=== PATIENT | female | born 1930 | race Caucasian/White ===

== ENCOUNTER 2018-03-14 18:04 | Inpatient (IN) | payer MEDICARE, MEDICAID ==
--- NOTE | 2018-03-14 18:29 | ED Physician Chart ---
ED Chief Complaint/HPI - Patient Information Date Seen:: 03/14/18 Time Seen:: 18:15 Chief Complaint:: Agitation History of Present Illness:: onset x 3 days of agitation and aggressive behavior; no report of trauma, SIs, H /As, ALOC, S/T, neck pain, C/P, SOB, Abd. Pain, A/N/V/D/C, fever, chills, or urinary s/s Allergies:: Allergies Allergy/AdvReac Type Severity Reaction Status Date / Time celecoxib [From Celebrex] Allergy Verified 03/14/18 18:15 levetiracetam [From Keppra] Allergy Verified 03/14/18 18:28 Vitals:: Vital Signs - 8 hr 03/14/18 18:15 Temp 98.1 F HR 73 RR 16 BP 145/70 O2 Sat % 95 Historian:: Patient, EMS Review:: Nurse's Note Reviewed, Old Chart Reviewed, EMS run form Reviewed ED Review of Systems - Review of Systems General/Constitutional: No fever, No chills, No weight loss, No weakness, No diaphoresis, No edema, No loss of appetite Skin: No skin lesions, No rash, No bruising Head: No headache, No light-headedness Eyes: No loss of vision, No pain, No diplopia ENT: No earache, No nasal drainage, No sore throat, No tinnitus Neck: No neck pain, No swelling, No thyromegaly, No stiffness, No mass noted Cardio Vascular: No chest pain, No palpitations, No PND, No orthopnea, No edema Pulmonary: No SOB, No cough, No sputum, No wheezing GI: No nausea, No vomiting, No diarrhea, No pain, No melena, No hematochezia, No constipation, No hematemesis G/U: No dysuria, No frequency, No hematuria, No nacturia Chain Offbearer: No vaginal discharge, No abnormal vaginal bleed, No contraction Musculoskeletal: No bone or joint pain, No back pain, No muscle pain Endocrine: No polyuria, No polydipsia Psychiatric: Prior psych history, Depression, Anxiety, No suicidal ideation, No homicidal ideation, No auditory hallucination, No visual hallucination Hematopoietic: No bruising, No lymphadenopathy Allergic/Immuno: No urticaria, No angioedema Neurological: No syncope, No focal symptoms, No weakness, No paresthesia, No headache, No seizure, No dizziness, Confusion, No vertigo ED Past Medical History - Past Medical History Obtainable: Yes Past Medical History: HTN, Dyslipidemia, Arthritis, Dementia Family History: HTN Social History: Non Smoker, No Alcohol, No Drug Use, , Care Facility Surgical History: None Psychiatricy History: Bipolar, Dementia Medication: Reviewed Family Medical History - Family Member Mother History Unknown: Yes ED Physical Exam - Physical Examination General/Constitutional: Awake, Well-developed, well-nourished, Alert, No distress, GCS 15, Non-toxic appearing, Ambulatory Head: Atraumatic Eyes: Lids, conjuctiva normal, PERRL, EOMI Skin: Nl inspection, No rash, No skin lesions, No ecchymosis, Well hydrated, No lymphadenopathy ENMT: External ears, nose nl, TM canals nl, Nasal exam nl, Lips, teeth, gums nl , Oropharynx nl, Tonsils nl Neck: Nontender, Full ROM w/o pain, No JVD, No nuchal rigidity, No bruit, No mass, No stridor Other Neck comments:: supple; no meningeal signs; no cervical tenderness Respiratory: Nl effort/Exclusion, Clear to Auscultation, No Wheeze/Rhonchi/Rales Cardio Vascular: RRR, No murmur, gallop, rubs, NL S1 S2, Carotid/Femoral/Distal pulses equal bilaterally GI: No tenderness/rebounding/guarding, No organomegaly, No hernia, Normal BS's, Nondistended, No mass/bruits, No McBurney tenderness Other GI comments:: no pulsatile masses : No CVA tenderness Extremities: No tenderness or effusion, Full ROM, normal strength in all extremities, No edema, Normal digits & nails Neuro/Psych: Alert/oriented, DTR's symmetric, Normal sensory exam, Normal motor strength, Judgement/insight normal, Mood normal, Normal gait, No focal deficits Other Neuro/Psych comments:: Disoriented and Confused; + Psychomotor Agitation; no SIs; Mood/Affect: Labile Misc: Normal back, No paraspinal tenderness ED Labs/Radiology/EKG Results - Lab Results Comments:: reviewed - EKG Interpretations EKG Time:: 18:53 Rate & Rhythm: 87; NSR Comments:: T-Wave Inversions; non-specific st-t changes ED Septic Shock - . Is Septic Shock (SBP<90, OR Lactate>4 mmol\L) present?: No - <6hrs of presentation: Vital Signs: Vital Signs - 8 hr 03/14/18 18:15 Temp 98.1 F HR 73 RR 16 BP 145/70 O2 Sat % 95 ED Reassessment (Disposition) - Reassessment Reassessment Condition:: Improved - Diagnosis Diagnosis:: Agitation; Psychosis; Dementia; Medical Clearance; Bipolar Disorder - Aftercare/Follow up Instructions Aftercare/Follow-Up Instructions:: Counseled pt regarding lab results/diagnosis & need follow up, Counseled pt & family regarding lab results/diagnosis & need follow up - Patient Disposition Discharge/Transfer:: Acute Care w/in this hosp Admitted to:: [facility] Condition at Disposition:: Stable, Improved
[2018-03-14 19:32] LABS: % BASOPHILS 0.8 % (0.0-2.0); % EOSINOPHILS 2.9 % (0.0-5.0); % LYMPHOCYTES 31.6 % (20.0-50.0); % MONOCYTES 11.4 % (2.0-10.0); % NEUTROPHILS 53.3 % (40.0-80.0); BASOPHILE ABSOLUTE 0.1 Th/cumm (0-0.2); EOSINOPHILE ABSOLUTE 0.2 Th/cmm (0.1-0.4); HEMATOCRIT 41.4 % (41.0-60); HEMOGLOBIN 14.2 gm/dL (12-16); LYMPHOCYTE ABSOLUTE 2.1 Th/cmm (1.5-3.0); MEAN CORPUSCULAR HEMOGLOBIN 34.3 pg (27.0-31.0); MEAN CORPUSCULAR HGB CONC 34.3 pg (28.0-36.0); MONOCYTE ABSOLUTE 0.8 Th/cmm (0.3-1.0); NEUTROPHILE ABSOLUTE 3.4 Th/cmm (1.8-8.0); PLATELET COUNT 239 Th/cmm (150-400); RED BLOOD COUNT 4.14 Mil/cmm (3.80-5.20); RED CELL DISTRIBUTION WIDTH 12.9 % (11.5-20.0); WHITE BLOOD COUNT 6.6 Th/cmm (4.8-10.8)
[2018-03-14 20:06] LABS: ALB/GLOB RATIO 1.5 (1.0-1.8); ALBUMIN 4.5 gm/dL (3.7-5.3); ALKALINE PHOSPHATASE 118 U/L (34-104); ANION GAP 11.3 (7.0-16.0); BILIRUBIN,TOTAL 0.4 mg/dL (0.3-1.0); BUN - UREA NITROGEN 15 mg/dL (7-25); CALCIUM SERUM 9.9 mg/dL (8.6-10.3); CHLORIDE 97 mEq/L (98-107); CHOLESTEROL 246 mg/dL (<200); CREATININE - SERUM 0.8 mg/dL (0.6-1.2); GLUCOSE 108 mg/dL (70-105); HDL -HIGH DENSITY LIPOPROTEIN 72 mg/dL (23-92); POTASSIUM SERUM 4.3 mEq/L (3.5-5.1); SGOT 28 U/L (13-39); SGPT/ALT 15 U/L (7-52); SODIUM SERUM 133 mEq/L (136-145); TOTAL PROTEIN,SERUM 7.5 gm/dL (6.0-8.3); TRIGLYCERIDES 99 mg/dL (<150)
[2018-03-14 20:15] LABS: ACETAMINOPHEN < 10.0 ug/mL (10.0-30.0); SALICYLATES (ASPIRIN) < 25.0 mg/L (30.0-100.0)
[2018-03-14 20:20] VITALS: BP 145/70
[2018-03-14 20:24] LABS: A1C % 5.5 % (4.0-6.0)
[2018-03-14] MEDS ORDERED: Magnesium Hydroxide (MOM) 30 mL UDC PO PRN (20:29)
[2018-03-14] MEDS ORDERED: Maalox 30 mL Cup PO PRN (20:29)
[2018-03-14] MEDS ORDERED: Hydrocodone/APAP 5mg/325mg Tab PO PRN (20:37)
[2018-03-14] MEDS: Multivitamin Tab PO SCH (22:30)
[2018-03-15] MEDS ORDERED: Guaifenesin DM 10 ML UDC PO PRN (00:29)
[2018-03-15] MEDS ORDERED: Haloperidol Lactate 5 mg/mL 1mL Vial IM STA (08:56)
[2018-03-15] MEDS ORDERED: Haloperidol Lactate 5 mg/mL 1mL Vial ONE (08:57)
[2018-03-15] MEDS ORDERED: CARIPRAZINE HCL PO SCH (09:00)
[2018-03-15] MEDS: Escitalopram Oxalate 5 mg Tab PO SCH (09:15)
[2018-03-15] MEDS: Multivitamin Tab PO SCH (09:15)
[2018-03-15] MEDS ORDERED: Haloperidol Lactate 5 mg/mL 1mL Vial IM ONE (11:00)
[2018-03-15 11:18] LABS: PHENYTOIN 3.8 ug/ml (10.0-20.0)
--- NOTE | 2018-03-15 13:16 | Psychiatric Evaluation ---
DATE OF SERVICE: 03/14/2018 IDENTIFYING DATA: The patient is an 87-year-old woman, resident of [facility] in [place]. JUSTIFICATION OF HOSPITALIZATION: The patient is admitted here on a 5150 as a danger to self and danger to others and being gravely disabled. CHIEF COMPLAINT: "Get out of here. I don't need to give any information." HISTORY OF PRESENT ILLNESS: This is the first psychiatric hospitalization to [facility] who has been referred over here from the [facility] in [place] for acute agitation. The patient presented to the Emergency Room where she was assessed by the staff members and was placed on 5150 for being a danger to self and danger to others and being gravely disabled. During the interview, the patient is reported to have been trying to get out of the bed and attempting to hit, whoever approaches her shouting "get out of here and swinging at the staff and trying to talk to her. The patient is noted to be very agitated and the patient is reported to have felt, however, and requested help. The patient has been having concerns for ongoing care. The patient has been tried to be evaluated this morning and the patient has been very agitated, screaming and yelling and the patient has to be given a dose of Haldol that helped the patient to calm down. The patient is not able to provide much information. The patient, however, is reported noted to be on a conservatorship and I tried to review the chart and psychiatric services. A psychiatric consultation that was done on 03/01/2018 and most of the information has to be obtained from that. The patient at the time of the hospitalization has been reported to having problem with the sleep, appetite are, however, is reported to be fair, but the patient has been getting easily agitated and is noted to be very aggressive. Review of the chart indicated that the patient has been making delusional statements. 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 The patient is reported to have been on Tegretol for mood stabilization and also was given the Haldol and the patient at the time of the evaluation has been on the Vraylar and Lexapro. PAST PSYCHIATRIC HISTORY: Details are not known. PSYCHIATRIC HISTORY: The patient was treated with the Seroquel 75 mg that caused her sedation. The patient was also on clonazepam 0.25 mg twice a day and the patient is reported to have been on 1.5 mg of the real patient MEDICAL HISTORY: Physical examination is requested and done by Dr. Lovett. The patient is reported to have been taking Tegretol for her seizure disorder. SUBSTANCE ABUSE HISTORY: No history of substance abuse. FAMILY HISTORY: The patient is a resident of the [facility] in [place] for the past 4 years. The patient is reported to have 2 sons and a daughter. One son is diseased and has been also diseased and is estranged and a daughter is reported to have been trying to reach her. The patient is on a conservatorship. MENTAL STATUS EXAMINATION: The patient is an 87-year-old woman looking her stated age, superficially cooperative. Eye contact is poor. Mood is noted to be irritable. Affect is constricted. The patient is reported to have been out of control and the patient has to be given a dose of Haldol that made her to be too sedated. The patient is reported to have been trying to take a swing at the staff yesterday in the Emergency Room and the patient could not be contained. 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 I am not able to do any of the cognitive testing at this time because the patient is too sedated. Review of the chart indicated that the patient has paranoid as well as grandiose delusions. Insight and judgment are very much impaired. Impulse control is noted to be poor. DIAGNOSTIC IMPRESSION: AXIS I: Psychotic disorder, not otherwise specified. B. Dementia and behavioral change, secondary . AXIS II: None. AXIS III: As per Dr. Lovett. IMMEDIATE TREATMENT PLAN: The patient is going to be continued on the Tegretol for her seizures and Lexapro is going to be discontinued and the patient is going to be given the low dose of the lorazepam for her anxiety and the patient is going to be continued on a low dose of an antipsychotic medication and the patient is going to be followed up. The patient is going to be started with the low dose of the Seroquel switch is a 25 mg twice a day and the patient is going to be encouraged to verbalize the concerns rather than to act out. ESTIMATED LENGTH OF STAY: 3-7 days. DISCHARGE CRITERIA: When she no longer a threat to self or others and be able to cope up with the stress. [facility]# [id number]
[2018-03-15] MEDS: Atorvastatin Calcium 10 MG TAB PO SCH (22:13)
--- NOTE | 2018-03-15 23:25 | Consultation ---
DATE OF CONSULTATION: INTERNAL MEDICINE CONSULTATION REFERRING MD: Dr. Paula. REASON FOR CONSULT: Medical management. HISTORY OF PRESENT ILLNESS: The patient is an 87-year-old lady, who was transferred from [facility] secondary to aggressive behavior and agitation for the last 3 days or so. She is currently sedated given aggressive behavior earlier this morning and I am not able to get any history from her, but per records, she has a history of dementia with behavioral disturbance, CAD of [place] coronary artery without any angina, paroxysmal AFib, convulsions, and acid reflux disease. She appears to be comfortable at this time. Per staff, she has not been complaining of any chest pain, shortness of breath or any other clinical symptoms. PAST MEDICAL HISTORY: As noted above. PAST SURGICAL HISTORY: None listed. FAMILY HISTORY: Per notes, hypertension. SOCIAL HISTORY: Nonsmoker. There is no alcohol history. She is a and lives at a care facility. ALLERGIES: ALLERGIC TO CELEBREX AND KEPPRA. OUTPATIENT MEDICATIONS: Tegretol 400mg b.i.d., docusate sodium 100 mg b.i.d., Haldol 1 mg IM q. 12 hours as needed for agitation, Tylenol 325 mg q. 6 p.r.n. for fever or pain, aspirin 325 mg daily, atorvastatin 40 mg daily, Vraylar 2 tabs daily of 1.5 mg, clonazepam 0.25 mg b.i.d., Robitussin p.r.n. for cough, [place] 5/325 mg q. 6 hours for severe pain, Dilantin 300mg at bedtime, Zantac 150 mg at bedtime. REVIEW OF SYSTEMS: Unable to be done given patient's current condition. PHYSICAL EXAMINATION: VITAL SIGNS: Temperature 98.5, pulse 73, respirations 20, BP 145/70, satting 95% on room air. GENERAL: Well-developed, well-nourished female, not in acute distress. She is sitting up in the Gisele chair, status post sedation. HEAD AND NECK: Normocephalic, atraumatic. Pupils were not checked at this time. NECK: There is no JVD or LAD. CARDIOVASCULAR: Regular rate and rhythm with distant sounds, but no audible murmurs or gallops. LUNGS: Clear to auscultation bilaterally. ABDOMEN: Soft, supple, nontender, nondistended, normoactive bowel sounds. EXTREMITIES: Lower extremities, there is no edema. NEUROLOGIC: Not done given the patient's condition. LABORATORY DATA: CBC was essentially within normal limits. Sodium 133. The rest of the chemistries were within normal limits. Glucose 108. A1c 5.5. AST 28, ALT 15, alkaline phosphatase 118. Troponin 0.12, cholesterol 246, LDL 138, HDL 72. TSH 3.31. Triglyceride level was 99. DIAGNOSTICS: EKG done on admission shows a sinus rhythm at a rate of 87. There are no ST elevations or depressions. ASSESSMENT: 1. Acute psych decompensation with aggressive behavior. 2. History of dementia with behavioral disorder. 3. History of coronary artery disease. 4. Slight elevation of troponin levels. 5. Paroxysmal atrial fibrillation-currently rate controlled. 6. Hyperlipidemia. 7. History of seizure disorder/convulsions. PLAN: The patient has been admitted to [facility] for further management of her psych decompensation. The patient will be kept on all her medications as schedule. I will lower the aspirin to 81 mg p.o. daily and add Plavix 75 mg daily. Given her elevated troponin levels, I will repeat a troponin in 8 hours and monitor. JOB# [id number] AURELIA
[2018-03-16] MEDS: Escitalopram Oxalate 5 mg Tab PO SCH (09:17)
[2018-03-16] MEDS: Multivitamin Tab PO SCH (09:19)
[2018-03-16] MEDS: Atorvastatin Calcium 10 MG TAB PO SCH (21:59)
--- NOTE | 2018-03-17 00:13 | Consultation ---
DATE OF CONSULTATION: 03/16/2018 REFERRING PHYSICIAN: Sandra Paula MD TYPE OF CONSULTATION: Psychology. HISTORY OF PRESENT ILLNESS: The patient is an 87-year-old female. The patient is a resident of [facility] in [place]. The following is by review of the medical record and by the patient's self-report. The patient is admitted on a 5150 as a danger to self and a danger to others and being gravely disabled. Upon interview, the patient is irritable and dismissive. The patient is declining to participate in the clinical interview. According to record review, the patient was referred from [facility] into the Emergency Room where she was assessed and placed on a 5150 for danger to self and to others. The patient was reported to have been trying to attempt to hit staff members and was extremely agitated and unable to be contained. The patient apparently was given a dose of Haldol to assist in deescalating the patient and to calm down. According to record, there was a psychiatric consultation done on 03/01/2018 and therefore, the information contained in that report is available. The patient seemed to believe that staff and others in her alf have been against her. The patient offered no other information. The patient declined to answer questions about suicidal ideation, plan or intention or homicidal ideation, plan or intention. SUBSTANCE ABUSE HISTORY: No record available. PAST MEDICAL HISTORY: Please see history and physical by Dr. Lovett. PAST PSYCHIATRIC HISTORY: The patient's records are available. Please see consultation. PSYCHOSOCIAL HISTORY: The patient is a resident of [facility] in [place] for the last 4 years. The patient has 2 sons and 1 daughter, one son is and the daughter is estranged. Apparently, the patient is on conservatorship. The patient answered no other questions about occupational or educational history or mandaeism affiliation. The patient did not answer questions about legal problems. She did not answer questions about history of physical or sexual abuse. The patient is demanding to be discharged. MENTAL STATUS EXAMINATION: The patient appears to be her stated age. The patient's attitude is guarded. Eye contact is poor. Speech is loud. Mood is irritable. Affect is constricted. The patient's behavior has been difficult to redirect. According to the staff, the patient has tried to swing or strike out at staff in the Emergency Room and could not be contained. Emergency Medicine was provided. The patient did not answer questions about auditory or visual hallucinations. She did not answer questions about suicidal ideation, plan or intention. There is possible paranoid ideation. This needs further evaluation. Impulse control is impaired. Concentration is poor. Sensorium is alert and oriented to self only. The patient did not participate in the memory assessment. The patient did not participate in the interpretation of proverbs. Insight is impaired. Judgment is impaired. DIAGNOSTIC IMPRESSION: AXIS I: 1. Psychotic disorder, not otherwise specified. 2. Dementia with behavioral disturbance. 3. Impulse control disorder, not otherwise specified. AXIS II: Deferred. AXIS III: Per Dr. Lovett. TREATMENT PLAN: The patient has been seen by Dr. Paula for psychiatric evaluation and for the management of the patient's psychotropic medications. The patient has been on Tegretol for seizures. The patient will be continued on that medication and Lexapro is going to be discontinued. The patient was given a low dose of lorazepam for anxiety as well as a low dose of an antipsychotic medication. The patient was given emergency medicine of [facility] to assist in deescalating her striking out at staff members and for her uncontainable behavior. We will provide limit setting and de-escalation. We will provide motivational enhancement for the patient to become compliant and stay compliant with all aspects of her care and treatment. We will provide reality orientation, differentiation and integration. We will provide coping strategies for phase of life issues. We will encourage the patient to be able to demonstrate emotional and self-regulation prior to her discharge. We will encourage the patient to verbalize her concerns versus acting out at staff and to follow through with direction. Thank you, Dr. Paula, for this consult and the opportunity to participate with you in this patient's care. JOB# [id number] AURELIA
--- NOTE | 2018-03-17 03:12 | Progress Notes ---
DATE: 03/16/2018 PSYCHIATRIC PROGRESS NOTE SUBJECTIVE: Staff was spoken to. The patient is interviewed. Mood is noted to be irritable. Affect is constricted. Coping skills at this time are noted to be poor. Insight and judgment are also noted to be impaired. The patient is confused and has been trying to get out of the bed and then wander off. ASSESSMENT: The patient is still psychotic, paranoid, and depressed. PLAN: To continue the patient with Seroquel and low dose of Lexapro and follow the patient up. JOB# [id number]
[2018-03-17] MEDS: Escitalopram Oxalate 5 mg Tab PO SCH (10:44)
[2018-03-17] MEDS: Multivitamin Tab PO SCH (10:44)
--- NOTE | 2018-03-17 18:22 | Progress Notes ---
DATE: 03/17/2018 SUBJECTIVE: Staff was spoken to. The patient is interviewed. Mood is noted to be dysphoric. The patient has short-term as well as long-term memory deficits. The patient is pacing. The patient needs to be closely monitored. The patient has been getting easily frustrated and needs to be redirected. The patient is screaming and yelling, have been closely monitored. The patient is currently on escitalopram 5 mg and Seroquel 12.5 mg twice a day and has been able to tolerate. No side effects to the medications are noted. ASSESSMENT: The patient is still impulsive. PLAN: To continue the patient with the current medications and followup. JOB# [id number]
[2018-03-17] MEDS: Atorvastatin Calcium 10 MG TAB PO SCH (20:46)
[2018-03-18] MEDS: Escitalopram Oxalate 5 mg Tab PO SCH (09:34)
[2018-03-18] MEDS: Multivitamin Tab PO SCH (09:35)
--- NOTE | 2018-03-18 21:16 | Progress Notes ---
DATE: 03/18/2018 PSYCHIATRIC PROGRESS NOTE Staff was spoken to. The patient is interviewed. Mood is noted to be irritable. Affect is constricted. The patient has been having difficult time today. The patient's coping skills are noted to be extremely poor. The patient is screaming and yelling. The patient has no insight into her illness. ASSESSMENT: The patient is still dysphoric. PLAN: To continue the patient with Seroquel and possibly discontinue the escitalopram. The patient is going to be encouraged to verbalize the concerns rather than to act out. JOB# [id number]
[2018-03-18] MEDS: Atorvastatin Calcium 10 MG TAB PO SCH (21:26)
[2018-03-19] MEDS: Multivitamin Tab PO SCH (09:06)
[2018-03-19] MEDS: Atorvastatin Calcium 10 MG TAB PO SCH (21:21)
--- NOTE | 2018-03-19 22:40 | Progress Notes ---
DATE: 03/19/2018 SUBJECTIVE: Staff was spoken to. The patient is interviewed. Mood is noted to be irritable. Affect is constricted. The patient is getting easily irritable. Coping skills at this time are noted to be very poor. Sleep and appetite also noted to be very poor. ASSESSMENT: The patient is still grossly psychotic and impulsive. PLAN: To continue the patient with the supportive therapy. We encouraged the patient to verbalize the concerns rather than to act out. [facility]# [id number]
[2018-03-20] MEDS: Multivitamin Tab PO SCH (09:15)
--- NOTE | 2018-03-20 17:32 | Progress Notes ---
DATE: 03/20/2018 SUBJECTIVE: Staff was spoken to. The patient is interviewed. Mood is noted to be irritable. Affect is constricted. The patient is getting easily frustrated. Insight and judgment at this time are noted to be still impaired. No side effects to the medications are noted. The patient has paranoid delusions, but denies any command hallucinations. The patient is currently on the Seroquel, which is being given at 12.5 mg twice a day and is going to be increased to 25 mg twice a day and followed up with the supportive therapy. JOB# [id number]
[2018-03-20] MEDS: Atorvastatin Calcium 10 MG TAB PO SCH (21:08)
[2018-03-21] MEDS: Multivitamin Tab PO SCH (08:40)
[2018-03-21] MEDS: Atorvastatin Calcium 10 MG TAB PO SCH (21:16)
--- NOTE | 2018-03-21 22:42 | Progress Notes ---
DATE: 03/21/2018 SUBJECTIVE: Staff was spoken to. The patient is interviewed. Mood is noted to be irritable. Affect is constricted. Coping skills at this time are noted to be still poor. The patient has been pacing on the unit. No side effect to the medications are noted. The patient has paranoia and has been getting easily upset today. The patient is currently on 25 mg twice a day of the Seroquel and has been able to tolerate the medication. ASSESSMENT: The patient is still impulsive and paranoid. PLAN: To continue the patient with the supportive therapy and encouraged the patient to verbalize the concerns rather than to act out. JOB# [id number]
[2018-03-22] MEDS: Multivitamin Tab PO SCH (08:20)
[2018-03-22] MEDS: Atorvastatin Calcium 10 MG TAB PO SCH (20:58)
--- NOTE | 2018-03-22 21:20 | Progress Notes ---
DATE: 03/22/2018 SUBJECTIVE: Staff was spoken to. The patient is interviewed. Mood is noted to be irritable. Affect is constricted. The patient is screaming and yelling and has been cursing the staff out. The patient has no insight into her illness. Coping skills are noted to be very poor. The patient is not able to contract for safety. It is becoming a major behavioral problem, continues to be very paranoid for no reason. She has been screaming. ASSESSMENT: The patient is still impulsive. PLAN: To discontinue the Klonopin because the patient is already on lorazepam and the patient is going to be placed on the Seroquel, which is going to be given 50 mg twice a day and the patient is going to be followed up with supportive therapy at this time. ____ ready to be discharged to a lower level of care in view of her aggression and psychosis. JOB# [id number]
[2018-03-23] MEDS: Multivitamin Tab PO SCH ×2 (10:05→10:13)
--- NOTE | 2018-03-24 06:50 | Progress Notes ---
DATE: 03/23/2018 SUBJECTIVE: Staff was spoken to. The patient is interviewed. Mood is noted to be irritable. Affect is constricted. The patient is screaming and yelling and using profanities. The patient has no insight into her illness. Coping skills are noted to be extremely poor. ASSESSMENT: The patient is still impulsive and paranoid. PLAN: To continue the patient with supportive therapy and follow up. [facility]# [id number]
[2018-03-24] MEDS: Multivitamin Tab PO SCH (09:13)
--- NOTE | 2018-03-24 17:37 | Progress Notes ---
DATE: 03/24/2018 SUBJECTIVE: Staff was spoken to. The patient is interviewed. Mood is noted to be irritable. Affect is constricted. Insight and judgment at this time are noted to be still impaired. Impulse control is noted to be poor. Coping skills are also noted to be very poor. The patient has been having difficult time to cope with the stress. The patient has been going on a tangent and has been cursing the staff out. The patient has been placed on the Haldol and has been able to comply with the medications so far. ASSESSMENT: The patient is still psychotic and impulsive. PLAN: To continue the patient with the supportive therapy and followup. JOB# [id number]
[2018-03-25] MEDS: Multivitamin Tab PO SCH (09:04)
--- NOTE | 2018-03-25 22:06 | Progress Notes ---
DATE: 03/25/2018 PSYCHIATRIC PROGRESS NOTE SUBJECTIVE: Staff was spoken to. The patient is interviewed. Mood is noted to be irritable. Affect is constricted. Insight and judgment at this time are noted to be still impaired. Coping skills are noted to be poor. The patient has been confused this morning. The patient continues to be verbally abusive, but no side effects to the medications are noted. ASSESSMENT: The patient is still impulsive and paranoid. PLAN: To continue the patient with Seroquel and followup. [facility]# [id number]
[2018-03-26] MEDS: Multivitamin Tab PO SCH (17:04)
--- NOTE | 2018-03-27 01:40 | Progress Notes ---
DATE: 03/26/2018 PSYCHIATRIC PROGRESS NOTE SUBJECTIVE: Staff was spoken to. The patient is interviewed. Mood is noted to be irritable. Affect is constricted. The patient is reluctantly taking the medications. No side effects to the medications are noted. The patient has been having difficult time to cope with the stress. The patient's sleep is noted to be fair. Appetite is noted to be improving. ASSESSMENT: The patient is still impulsive and paranoid. PLAN: To continue the patient with the supportive therapy. I encouraged the patient to verbalize the concerns rather than to act out. JOB# [id number]
[2018-03-27] MEDS: Multivitamin Tab PO SCH (08:53)
--- NOTE | 2018-03-28 00:35 | Progress Notes ---
DATE: 03/27/2018 SUBJECTIVE: Staff was spoken to. The patient is interviewed. Mood is noted to be less irritable. Affect is appropriate. The patient has been able to tolerate the medications. The patient is currently on Haldol 2 mg twice a day because the Seroquel was ineffective. Insight and judgment are noted to be improving. Impulse control seems to be fair. Mood swings are coming under control. ASSESSMENT: The patient is stabilizing. PLAN: To continue the patient with the supportive therapy and encouraged the patient to verbalize the concerns rather than to act out. JOB# [id number]
[2018-03-28] MEDS: Multivitamin Tab PO SCH (10:37)
--- NOTE | 2018-03-28 20:01 | Progress Notes ---
DATE: 03/28/2018 PSYCHIATRIC PROGRESS NOTE SUBJECTIVE: Staff was spoken to. The patient is interviewed. costume shop manager has been spoken to. The patient has no place to return to. The patient is going to be having the Medicare starting on 04/04/2018. The patient reports that she does not have any money. The complex case manager has been trying to work with these placements to see if anyone is going to give her a chance. ASSESSMENT: The patient is still impulsive, tends to be verbally abusive. PLAN: To continue the patient with this current medications and followup. JOB# [id number]
[2018-03-29] MEDS: Multivitamin Tab PO SCH (09:03)
--- NOTE | 2018-03-29 14:46 | Progress Notes ---
DATE: 03/29/2018 PSYCHIATRIC PROGRESS NOT SUBJECTIVE: Staff was spoken to. The patient is interviewed. Mood is noted to be less irritable. Affect is appropriate. The patient's coping skills are noted to be improving. Insight and judgment are noted to be improving. No side effects to the medications are noted. However, the patient has no place to return to. ASSESSMENT: The patient is still awaiting placement. PLAN: To continue the patient with supportive therapy and followup. [facility]# [id number]
[2018-03-30] MEDS: Multivitamin Tab PO SCH (09:43)
[2018-03-31] MEDS: Multivitamin Tab PO SCH (09:09)
--- NOTE | 2018-03-31 09:28 | Progress Notes ---
DATE: 03/30/2018 PSYCHIATRIC PROGRESS NOTE SUBJECTIVE: Staff was spoken to. The patient is interviewed. Mood is noted to be irritable. Affect is constricted. The patient has been getting easily upset. manager film has been trying to look for placement for this patient, but so far, no place is available for this patient. Coping skills at this time are noted to be poor. Insight and judgment are also noted to be still impaired. The patient is still impulsive. The patient is currently continued on carbamazepine and haloperidol and the patient has been able to tolerate. No side effects to the medications are noted. ASSESSMENT: The patient is still paranoid and awaiting placement. PLAN: To continue the patient with the current medications and follow up. JOB# [id number]
--- NOTE | 2018-03-31 19:06 | Progress Notes ---
DATE: 03/31/2018 SUBJECTIVE: Staff was spoken to. The patient is interviewed. Mood is a bit less irritable. Affect is appropriate. The patient has paranoia, but denies any command hallucinations. The aggressive behavior has been coming down. The patient has been able to comply with the medications. No side effects to medications are noted. The patient is currently on Haldol and has been able to tolerate. ASSESSMENT: The patient's psychosis is resolving. The patient is awaiting placement. PLAN: To continue the patient with the supportive therapy and followup. JOB# [id number]
[2018-04-01] MEDS: Multivitamin Tab PO SCH (09:56)
--- NOTE | 2018-04-01 14:27 | Progress Notes ---
DATE: 04/01/2018 SUBJECTIVE: Staff was spoken to. The patient is interviewed. Mood is a bit less irritable. Affect is appropriate. The patient is not suicidal or homicidal. Insight and judgment at this time are noted to be improving. Impulse control seems to be fair. No side effects to the medications are noted. The patient is less verbally abusive compared to before. ASSESSMENT: The patient is stabilizing and awaiting placement. PLAN: To continue the patient with the supportive therapy and followup. JOB# [id number]
--- NOTE | 2018-04-02 08:38 | General Progress Note ---
Subjective - Review of Systems Service Date: 04/02/18 Subjective: I am fine Objective - Results Result Diagrams: 03/14/18 19:00 03/14/18 19:00 Recent Labs: Laboratory Last Values WBC 6.6 Th/cmm (4.8-10.8) 03/14/18 19:00 RBC 4.14 Mil/cmm (3.80-5.20) 03/14/18 19:00 Hgb 14.2 gm/dL (12-16) 03/14/18 19:00 Hct 41.4 % (41.0-60) 03/14/18 19:00 MCV 100.0 fl (81-100) 03/14/18 19:00 MCH 34.3 pg (27.0-31.0) H 03/14/18 19:00 MCHC Differential 34.3 pg (28.0-36.0) 03/14/18 19:00 RDW 12.9 % (11.5-20.0) 03/14/18 19:00 Plt Count 239 Th/cmm (150-400) 03/14/18 19:00 MPV 7.0 fl 03/14/18 19:00 Neutrophils % 53.3 % (40.0-80.0) 03/14/18 19:00 Lymphocytes % 31.6 % (20.0-50.0) 03/14/18 19:00 Monocytes % 11.4 % (2.0-10.0) H 03/14/18 19:00 Eosinophils % 2.9 % (0.0-5.0) 03/14/18 19:00 Basophils % 0.8 % (0.0-2.0) 03/14/18 19:00 Sodium 133 mEq/L (136-145) L 03/14/18 19:00 Potassium 4.3 mEq/L (3.5-5.1) 03/14/18 19:00 Chloride 97 mEq/L (98-107) L 03/14/18 19:00 Carbon Dioxide 29.0 mEq/L (21.0-31.0) 03/14/18 19:00 Anion Gap 11.3 (7.0-16.0) 03/14/18 19:00 BUN 15 mg/dL (7-25) 03/14/18 19:00 Creatinine 0.8 mg/dL (0.6-1.2) 03/14/18 19:00 Est GFR ( Amer) TNP 03/14/18 19:00 Est GFR (Non-Af Amer) TNP 03/14/18 19:00 BUN/Creatinine Ratio 18.8 03/14/18 19:00 Glucose 108 mg/dL (70-105) H 03/14/18 19:00 Hemoglobin A1c % 5.5 % (4.0-6.0) 03/14/18 19:00 Calcium 9.9 mg/dL (8.6-10.3) 03/14/18 19:00 Total Bilirubin 0.4 mg/dL (0.3-1.0) 03/14/18 19:00 AST 28 U/L (13-39) 03/14/18 19:00 ALT 15 U/L (7-52) 03/14/18 19:00 Alkaline Phosphatase 118 U/L (34-104) H 03/14/18 19:00 Troponin I 0.06 ng/mL (0.01-0.05) H D 03/15/18 10:48 Total Protein 7.5 gm/dL (6.0-8.3) 03/14/18 19:00 Albumin 4.5 gm/dL (3.7-5.3) 03/14/18 19:00 Globulin 3.0 gm/dL 03/14/18 19:00 Albumin/Globulin Ratio 1.5 (1.0-1.8) 03/14/18 19:00 Triglycerides 99 mg/dL (<150) 03/14/18 19:00 Cholesterol 246 mg/dL (<200) H 03/14/18 19:00 LDL Cholesterol Direct 138 mg/dL (75-193) 03/14/18 19:00 HDL Cholesterol 72 mg/dL (23-92) 03/14/18 19:00 TSH 3.31 uIU/ml (0.34-5.60) 03/14/18 19:00 Salicylates < 25.0 mg/L (30.0-100.0) L 03/14/18 19:00 Acetaminophen < 10.0 ug/mL (10.0-30.0) L 03/14/18 19:00 Phenytoin 3.8 ug/ml (10.0-20.0) L 03/15/18 10:48 Carbamazepine 2.1 ug/ml (4.0-12.0) L 03/15/18 10:48 Ethyl Alcohol < 10 mg/dL (0-10) 03/14/18 19:00 RPR NONREACTIVE (NONREACTIVE) 03/14/18 19:00 - Physical Exam Vitals and I&O: Vital Signs Temp 98.2 F 04/02/18 04:34 Pulse 60 04/02/18 04:34 Resp 18 04/02/18 04:34 BP 138/79 04/02/18 04:34 Pulse Ox 96 04/02/18 04:34 Intake & Output 04/01/18 04/02/18 04/02/18 18:59 06:59 18:59 Intake Total 480 Balance 480 Intake: Oral 480 Other: # Voids 2 Active Medications: Current Medications Acetaminophen (Tylenol) 650 mg PO Q4HR PRN PRN Reason: Mild Pain / Temp above 100 Stop: 05/13/18 20:28 Last Admin: 03/31/18 04:57 Dose: 650 mg Al Hydrox/Mg Hydrox/Simethicone (Maalox) 30 ml PO Q4HR PRN PRN Reason: GI DISTRESS Stop: 05/13/18 20:28 Atorvastatin Calcium (Lipitor) 40 mg PO HS [facility] Stop: 05/14/18 20:59 Last Admin: 04/01/18 20:52 Dose: 40 mg Carbamazepine (Tegretol) 400 mg PO Q12HR [facility]; Protocol Stop: 05/14/18 08:59 Last Admin: 04/01/18 20:53 Dose: 400 mg Clopidogrel Bisulfate (Plavix) 75 mg PO DAILY [facility] Stop: 05/14/18 10:44 Last Admin: 04/01/18 09:56 Dose: 75 mg Docusate Sodium (Colace) 100 mg PO BID [facility] Stop: 05/14/18 08:59 Last Admin: 04/01/18 17:12 Dose: 100 mg Famotidine (Pepcid) 20 mg PO HS [facility] Stop: 05/14/18 20:59 Last Admin: 04/01/18 20:54 Dose: 20 mg Guaifenesin/Dextromethorphan (Robitussin Dm) 10 ml PO Q6H PRN PRN Reason: Cough Stop: 05/14/18 00:28 Last Admin: 03/21/18 11:28 Dose: 10 ml Haloperidol (Haldol) 2 mg PO BID [facility]; Protocol Stop: 05/23/18 08:59 Last Admin: 04/01/18 17:12 Dose: 2 mg Magnesium Hydroxide (Milk Of Magnesia) 30 ml PO HS PRN PRN Reason: Constipation Multivitamins/Vitamin C (Theragran) 1 tab PO DAILY [facility] Stop: 05/13/18 21:59 Last Admin: 04/01/18 09:56 Dose: 1 tab Phenytoin (Dilantin) 350 mg PO HS [facility] Stop: 05/13/18 21:59 Last Admin: 04/01/18 20:56 Dose: 350 mg General: Alert, Other (Confused) HEENT: Atraumatic Neck: Supple Cardiovascular: Regular rate Lungs: Clear to auscultation Abdomen: Bowel sounds Extremities: Other (No edema) Neurological: Other (Unstable gait) Skin: Other (Warm and dry) Psych/Mental Status: Other (Confused not oriented.) Assessment/Plan - Assessment Assessment: Patient is awake, alert, calm in no acute distress. Dx: Increased in agitation , Dementia, Elevated troponins, CAD, A-fib, Seizure disorder. - Plan Plan: Patient is in under Psychiatric follow up, Continue with SNF meds. Troponins are requested. Will continue to monitor. Nutritional Asmnt/Malnutr-PDOC - Dietary Evaluation Malnutrition Findings (Please click <Entered> for more info): Nutritional Asmnt/Malnutrition Start: 03/17/18 11: 23 Text: Status: Complete Freq: Protocol: Document 03/17/18 11:23 HECTOR (Rec: 03/17/18 11:32 HECTOR DELATORRE- [email or web address]) Nutritional Asmnt/Malnutrition Patient General Information Nutritional Screening Moderate Risk Diagnosis Psychosis Pertinent Medical Hx/Surgical Hx dementia, seizure disorder, CHF, HTN, with pacemaker Subjective Information Patient was admitted from [facility] on 5150 hold. Per nursing notes, patient is delusional, easily agitated, hyperverbal and hostile to staff. Current Diet Order/ Nutrition Support Mechanical soft chopped, no added salt, high protein, high calorie Patient / S.O Not Indicated Pertinent Medications maalox, lipitor, colace, pepcid, MOM, Theragran, dilantin Pertinent Labs (03/14) Na 133, Cholesterol 246 Nutritional Hx/Data Height 1.57 m Height (Calculated Centimeters) 157.5 Current Weight (lbs) 68.039 kg Weight (Calculated Kilograms) 68.0 Weight (Calculated Grams) 44843.9 [place] Body Weight 110 % [place] Body Weight 136 Body Mass Index (BMI) 27.4 Recent Weight Change No Weight Status Overweight GI Symptoms GI Symptoms None Last BM none noted in EMR since admission Difficult in: None Food Allergies No Cultural/Ethnic/Quaker Belief None indicated Usual diet at home unknown Skin Integrity/Comment: Floyd 18, Intact Current %PO Good (75-100%) Estimated Nutritional Goals BEE in Kcals: Using Current wt Calories/Kcals/Kg 23-27 kcal/kg using CBW 68.1kg Kcals Calculated 3096-8522 kcal/day Protein: Using Current wt Protein g/k gm/kg Protein Calculated ~70gm/day Fluid: ml 3784-7918 ml/day (1 ml/kcal) Nutritional Problem 1. Problem Problem Altered nutrition related lab values related to Etiology electrolyte imbalance/ possible exessive saturated fat intake aeb Signs/Symptoms: Na 133, Cholesterol 246 Intervention/Recommendation Comments 1. Continue mechanical soft chopped diet as tolerated by patient. 2. Consider modifying to cardiac diet modification due to cholesterol level. Consider removing high protein/high calorie comment due to patient overweight with adequate oral intake. Expected Outcomes/Goals Expected Outcomes/Goals oral intake >75% of meals, weight stable or trend toward ideal body weight, nutrition related labs normalize.
[2018-04-02] MEDS: Multivitamin Tab PO SCH (08:57)
--- NOTE | 2018-04-02 14:10 | Progress Notes ---
DATE: 04/02/2018 SUBJECTIVE: The staff was spoken to. The patient is interviewed. Mood is noted to be less irritable. Affect is appropriate. Not suicidal or homicidal today, but the patient has no place to return to. testing manager has been mentioning that they have been request for the prison facilities to come into the interview. ASSESSMENT: I have not had any luck with anyone coming to interview the patient. JOB# [id number]
[2018-04-03] MEDS: Multivitamin Tab PO SCH (09:41)
--- NOTE | 2018-04-04 02:29 | Progress Notes ---
DATE: 04/03/2018 PSYCHIATRIC PROGRESS NOTE SUBJECTIVE: Staff was spoken to. The patient is interviewed. Mood is noted to be irritable. Affect is constricted. Coping skills are noted to be still poor. The patient is getting easily frustrated for being in here. The bilingual case manager has been reporting they have been trying to call several different places. No one is willing to take the patient and on 04/04/2018 it is reported that the insurance is going to be changing and the long term will be able to take the patient. ASSESSMENT: The patient is gravely disabled at this time and has no place to return to. PLAN: Plan to continue the patient with the supportive therapy and followup. JOB# [id number]
--- NOTE | 2018-04-04 09:07 | General Progress Note ---
Subjective - Review of Systems Service Date: 04/04/18 Subjective: Sleeping but arousable. Objective - Results Result Diagrams: 03/14/18 19:00 03/14/18 19:00 Recent Labs: Laboratory Last Values WBC 6.6 Th/cmm (4.8-10.8) 03/14/18 19:00 RBC 4.14 Mil/cmm (3.80-5.20) 03/14/18 19:00 Hgb 14.2 gm/dL (12-16) 03/14/18 19:00 Hct 41.4 % (41.0-60) 03/14/18 19:00 MCV 100.0 fl (81-100) 03/14/18 19:00 MCH 34.3 pg (27.0-31.0) H 03/14/18 19:00 MCHC Differential 34.3 pg (28.0-36.0) 03/14/18 19:00 RDW 12.9 % (11.5-20.0) 03/14/18 19:00 Plt Count 239 Th/cmm (150-400) 03/14/18 19:00 MPV 7.0 fl 03/14/18 19:00 Neutrophils % 53.3 % (40.0-80.0) 03/14/18 19:00 Lymphocytes % 31.6 % (20.0-50.0) 03/14/18 19:00 Monocytes % 11.4 % (2.0-10.0) H 03/14/18 19:00 Eosinophils % 2.9 % (0.0-5.0) 03/14/18 19:00 Basophils % 0.8 % (0.0-2.0) 03/14/18 19:00 Sodium 133 mEq/L (136-145) L 03/14/18 19:00 Potassium 4.3 mEq/L (3.5-5.1) 03/14/18 19:00 Chloride 97 mEq/L (98-107) L 03/14/18 19:00 Carbon Dioxide 29.0 mEq/L (21.0-31.0) 03/14/18 19:00 Anion Gap 11.3 (7.0-16.0) 03/14/18 19:00 BUN 15 mg/dL (7-25) 03/14/18 19:00 Creatinine 0.8 mg/dL (0.6-1.2) 03/14/18 19:00 Est GFR ( Amer) TNP 03/14/18 19:00 Est GFR (Non-Af Amer) TNP 03/14/18 19:00 BUN/Creatinine Ratio 18.8 03/14/18 19:00 Glucose 108 mg/dL (70-105) H 03/14/18 19:00 Hemoglobin A1c % 5.5 % (4.0-6.0) 03/14/18 19:00 Calcium 9.9 mg/dL (8.6-10.3) 03/14/18 19:00 Total Bilirubin 0.4 mg/dL (0.3-1.0) 03/14/18 19:00 AST 28 U/L (13-39) 03/14/18 19:00 ALT 15 U/L (7-52) 03/14/18 19:00 Alkaline Phosphatase 118 U/L (34-104) H 03/14/18 19:00 Troponin I 0.06 ng/mL (0.01-0.05) H D 03/15/18 10:48 Total Protein 7.5 gm/dL (6.0-8.3) 03/14/18 19:00 Albumin 4.5 gm/dL (3.7-5.3) 03/14/18 19:00 Globulin 3.0 gm/dL 03/14/18 19:00 Albumin/Globulin Ratio 1.5 (1.0-1.8) 03/14/18 19:00 Triglycerides 99 mg/dL (<150) 03/14/18 19:00 Cholesterol 246 mg/dL (<200) H 03/14/18 19:00 LDL Cholesterol Direct 138 mg/dL (75-193) 03/14/18 19:00 HDL Cholesterol 72 mg/dL (23-92) 03/14/18 19:00 TSH 3.31 uIU/ml (0.34-5.60) 03/14/18 19:00 Salicylates < 25.0 mg/L (30.0-100.0) L 03/14/18 19:00 Acetaminophen < 10.0 ug/mL (10.0-30.0) L 03/14/18 19:00 Phenytoin 3.8 ug/ml (10.0-20.0) L 03/15/18 10:48 Carbamazepine 2.1 ug/ml (4.0-12.0) L 03/15/18 10:48 Ethyl Alcohol < 10 mg/dL (0-10) 03/14/18 19:00 RPR NONREACTIVE (NONREACTIVE) 03/14/18 19:00 - Physical Exam Vitals and I&O: Vital Signs Temp 98.4 F 04/04/18 07:46 Pulse 64 04/04/18 07:46 Resp 18 04/04/18 07:46 BP 144/83 04/04/18 07:46 Pulse Ox 94 04/04/18 07:46 Intake & Output 04/03/18 04/04/18 04/04/18 18:59 06:59 18:59 Intake Total 500 Balance 500 Intake: Oral 500 Other: # Voids 3 Active Medications: Current Medications Acetaminophen (Tylenol) 650 mg PO Q4HR PRN PRN Reason: Mild Pain / Temp above 100 Stop: 05/13/18 20:28 Last Admin: 04/03/18 09:40 Dose: 650 mg Al Hydrox/Mg Hydrox/Simethicone (Maalox) 30 ml PO Q4HR PRN PRN Reason: GI DISTRESS Stop: 05/13/18 20:28 Atorvastatin Calcium (Lipitor) 40 mg PO HS [facility] Stop: 05/14/18 20:59 Last Admin: 04/03/18 21:58 Dose: 40 mg Carbamazepine (Tegretol) 400 mg PO Q12HR [facility]; Protocol Stop: 05/14/18 08:59 Last Admin: 04/03/18 21:59 Dose: 400 mg Clopidogrel Bisulfate (Plavix) 75 mg PO DAILY [facility] Stop: 05/14/18 10:44 Last Admin: 04/03/18 09:41 Dose: Not Given Docusate Sodium (Colace) 100 mg PO BID [facility] Stop: 05/14/18 08:59 Last Admin: 04/03/18 16:11 Dose: Not Given Famotidine (Pepcid) 20 mg PO HS [facility] Stop: 05/14/18 20:59 Last Admin: 04/03/18 21:58 Dose: 20 mg Guaifenesin/Dextromethorphan (Robitussin Dm) 10 ml PO Q6H PRN PRN Reason: Cough Stop: 05/14/18 00:28 Last Admin: 03/21/18 11:28 Dose: 10 ml Haloperidol (Haldol) 2 mg PO BID [facility]; Protocol Stop: 05/23/18 08:59 Last Admin: 04/03/18 16:11 Dose: 2 mg Magnesium Hydroxide (Milk Of Magnesia) 30 ml PO HS PRN PRN Reason: Constipation Multivitamins/Vitamin C (Theragran) 1 tab PO DAILY [facility] Stop: 05/13/18 21:59 Last Admin: 04/03/18 09:41 Dose: Not Given Phenytoin (Dilantin) 350 mg PO HS [facility] Stop: 05/13/18 21:59 Last Admin: 04/03/18 22:02 Dose: 350 mg General: Alert, Other (Confused) HEENT: Atraumatic Neck: Supple Cardiovascular: Regular rate Lungs: Clear to auscultation Abdomen: Bowel sounds Extremities: Other (No edema) Neurological: Other (Unstable gait) Skin: Other (Warm and dry) Psych/Mental Status: Other (Confused not oriented.) Assessment/Plan - Assessment Assessment: Patient is awake, alert, calm in no acute distress. Dx: Increased in agitation , Dementia, Elevated troponins, CAD, A-fib, Seizure disorder. - Plan Plan: Patient is in under Psychiatric follow up, Continue with SNF meds. Troponins are requested. Will continue to monitor. Nutritional Asmnt/Malnutr-PDOC - Dietary Evaluation Malnutrition Findings (Please click <Entered> for more info): Nutritional Asmnt/Malnutrition Start: 03/17/18 11: 23 Text: Status: Complete Freq: Protocol: Document 03/17/18 11:23 HECTOR (Rec: 03/17/18 11:32 HECTOR DELATORRE- [email or web address]) Nutritional Asmnt/Malnutrition Patient General Information Nutritional Screening Moderate Risk Diagnosis Psychosis Pertinent Medical Hx/Surgical Hx dementia, seizure disorder, CHF, HTN, with pacemaker Subjective Information Patient was admitted from [facility] on 5150 hold. Per nursing notes, patient is delusional, easily agitated, hyperverbal and hostile to staff. Current Diet Order/ Nutrition Support Mechanical soft chopped, no added salt, high protein, high calorie Patient / S.O Not Indicated Pertinent Medications maalox, lipitor, colace, pepcid, MOM, Theragran, dilantin Pertinent Labs (7/11) Na 133, Cholesterol 246 Nutritional Hx/Data Height 1.57 m Height (Calculated Centimeters) 157.5 Current Weight (lbs) 68.039 kg Weight (Calculated Kilograms) 68.0 Weight (Calculated Grams) 12218.9 [place] Body Weight 110 % [place] Body Weight 136 Body Mass Index (BMI) 27.4 Recent Weight Change No Weight Status Overweight GI Symptoms GI Symptoms None Last BM none noted in EMR since admission Difficult in: None Food Allergies No Cultural/Ethnic/Baptism Belief None indicated Usual diet at home unknown Skin Integrity/Comment: Floyd 18, Intact Current %PO Good (75-100%) Estimated Nutritional Goals BEE in Kcals: Using Current wt Calories/Kcals/Kg 23-27 kcal/kg using CBW 68.1kg Kcals Calculated 1468-7169 kcal/day Protein: Using Current wt Protein g/k gm/kg Protein Calculated ~70gm/day Fluid: ml 8692-1054 ml/day (1 ml/kcal) Nutritional Problem 1. Problem Problem Altered nutrition related lab values related to Etiology electrolyte imbalance/ possible exessive saturated fat intake aeb Signs/Symptoms: Na 133, Cholesterol 246 Intervention/Recommendation Comments 1. Continue mechanical soft chopped diet as tolerated by patient. 2. Consider modifying to cardiac diet modification due to cholesterol level. Consider removing high protein/high calorie comment due to patient overweight with adequate oral intake. Expected Outcomes/Goals Expected Outcomes/Goals oral intake >75% of meals, weight stable or trend toward ideal body weight, nutrition related labs normalize.
[2018-04-04] MEDS: Multivitamin Tab PO SCH ×2 (09:46→09:53)
--- NOTE | 2018-04-04 23:45 | Progress Notes ---
DATE: 04/04/2018 PSYCHIATRIC PROGRESS NOTE PROGRESS IN THE UNIT: Staff was spoken to. The patient is interviewed. Mood is noted to be irritable. Affect is constricted. The patient has been demanding that she should be out of here. game manager has been looking for placement for this patient, no placement has been available. The patient continues to have paranoid delusions, but no command hallucinations are reported at this time. ASSESSMENT: The patient's impulsivity is coming under control. PLAN: To continue the patient with supportive therapy and followup. JOB# [id number]
[2018-04-05] MEDS: Multivitamin Tab PO SCH (08:38)
--- NOTE | 2018-04-05 20:21 | Progress Notes ---
DATE: 04/05/2018 SUBJECTIVE: Staff was spoken to. The patient is interviewed. Mood is noted to be less irritable. Affect is appropriate. The patient's paranoia is coming down. Insight and judgment are also noted to be improving. ASSESSMENT: The patient is stabilizing. PLAN: To discharge the patient today for followup on an outpatient basis. JOB# [id number]
== END 2018-04-05 15:30 | DRG 885 ==
LOC: ER 18:04 → GERO2 19:36
PROVIDERS: ADMIT Psychiatry & Neurology Psychiatry; ATTEND Psychiatry & Neurology Psychiatry
DX: F23 Brief psychotic disorder (principal); F03.91 Unspecified dementia, unspecified severity, with behavioral disturbance; I25.10 Atherosclerotic heart disease of native coronary artery without angina pectoris; I48.0 Paroxysmal atrial fibrillation; E78.5 Hyperlipidemia, unspecified; I10 Essential (primary) hypertension; M19.90 Unspecified osteoarthritis, unspecified site; K21.9 Gastro-esophageal reflux disease without esophagitis; G40.909 Epilepsy, unspecified, not intractable, without status epilepticus; F63.9 Impulse disorder, unspecified; Z88.8 Allergy status to other drugs, medicaments and biological substances; Z82.49 Family history of ischemic heart disease and other diseases of the circulatory system
CPT/HCPCS: 36415-UA; 80053-TC; 80061-TC; 80156-TC; 80185-TC; 80320-TC; 80329-TC; 83036-90; 84443-TC; 84484-TC; 85025-TC; 86592-TC; 93005; J1630; Z7610